=== PATIENT | male | born 1995 | race Caucasian/White ===

== ENCOUNTER 2019-01-06 13:04 | Emergency (ER) | payer MEDICAID ==
[~2019-01-06] VITALS: Ht 160 cm; Wt 72.4 kg
[2019-01-06 13:08] VITALS: BP 150/68; PULSE 92; RESP 18; Ht 160 cm; Wt 72.4 kg
[2019-01-06] MEDS ORDERED: AZITHROMYCIN 500 MG TAB PO ONE (14:30)
[2019-01-06] MEDS ORDERED: CEFTRIAXONE 250 MG INJ IM ONE (14:30)
[2019-01-06] MEDS ORDERED: LIDOCAINE 1% (MDV) 20 ML INJ SC ONE (14:30)
[2019-01-06] MEDS ORDERED: ACET325T33 PO (14:41)
--- NOTE | 2019-01-06 21:50 | ERD ---
ER Documentation Chief Complaint Chief Complaint right side testicular pain x2 wks, painful urination HPI 23 year old male presenting with right testicular pain x 2 weeks. Patient states he has had this pain in the past and it was associated with an STD that he had. Patient admits to risky sexual behaviors and states that he just got in town from [place]. Patient states he has dysuria and pain when he touches his testicle. Patient states the pain has not improved and he has not taken anything for it. Patient states in the past he had a mass on his testicle and was not sure what it was from and does not remember what he was diagnosed with. Patient denies any allergies to medications. ROS All systems reviewed and are negative except as per history of present illness. Medications Home Meds Active Scripts Acetaminophen* (Tylenol*) 325 Mg Tablet, 2 TAB PO Q6 PRN for PAIN AND OR ELEVATED TEMP, #20 TAB Prov:GEETA GUO PA-C 01/06/19 Allergies Allergies: Coded Allergies: No Known Allergy (Unverified , 01/06/19) PMhx/Soc Medical and Surgical Hx: pt denies Medical Hx, pt denies Surgical Hx Hx Alcohol Use: No Hx Substance Use: No Hx Tobacco Use: No Smoking Status: Never smoker FmHx Family History: No diabetes, No coronary disease, No other Physical Exam Vitals Vital Signs Date Temp Pulse Resp B/P (MAP) Pulse Ox O2 O2 Flow FiO2 Time Delivery Rate 01/06/19 98.1 92 18 150/68 98 13:08 (95) Physical Exam Const: No acute distress Resp: Clear to auscultation bilaterally Cardio: Regular rate and rhythm, no murmurs Abd: Soft, non tender, non distended. Normal bowel sounds Skin: No petechiae or rashes Back: No midline or flank tenderness : Patient has mild pain on palpation to right testicle, no signs of lesions or discharge, patient is able to retract his foreskin without difficulty. Results 24 hrs Laboratory Tests Test 01/06/19 13:49 Urine Color ERIN Urine Clarity SLIGHTLY CLOUDY Urine pH 6.0 Urine Specific [place] 1.031 Urine Ketones NEGATIVE mg/dL Urine Nitrite NEGATIVE mg/dL Urine Bilirubin NEGATIVE mg/dL Urine Urobilinogen 1+ mg/dL Urine Leukocyte Esterase NEGATIVE Shaheen/ul Urine Microscopic RBC 6 /HPF Urine Microscopic WBC 1 /HPF Urine Bacteria FEW /HPF Urine Mucus MODERATE /HPF Urine Hemoglobin 1+ mg/dL Urine Glucose NEGATIVE mg/dL Urine Total Protein 1+ mg/dl Current Medications Medications Dose Sig/Randell Start Time Status Last (Trade) Ordered Route PRN Stop Time Admin Dose Reason Admin Ceftriaxone 250 mg ONCE ONCE 01/06/19 DC 01/06/19 Sodium IM 14:30 01/06/19 14:29 (Rocephin) 14:31 1,000 mg ONCE ONCE 01/06/19 DC 01/06/19 Azithromycin PO 14:30 01/06/19 14:29 (Zithromax) 14:31 Lidocaine 20 ml ONCE ONCE 01/06/19 DC 01/06/19 (Xylocaine SC 14:30 01/06/19 14:29 1% (Mdv) 20 14:31 ml) Procedures/MDM ED course UA Scrotum US Ceftriaxone Azithromycin Patient tolerated medications without any side effects and all lab results were discussed with the patient Imaging PROCEDURE: US Scrotum. CLINICAL INDICATION: Pain TECHNIQUE: Multiple sonographic images of the scrotal region were obtained utilizing a linear array transducer with grayscale and color-flow and a Doppler imaging. The images were reviewed on a high-resolution PACS workstation. COMPARISON: No prior studies are available for comparison. FINDINGS: The right testicle is well visualized and has a normal echotexture. No focal areas of abnormal echogenicity are visualized. The right testicle measures 3.4 x 1.6 x 2.9 cm. There is normal color-flow. The right epididymis is visualized and unremarkable in appearance. There is normal color-flow. The left testicle is well visualized and has a normal echotexture. No focal areas abnormal echogenicity are visualized. The left testicle measures 3.4 x 1.5 x 3.2 cm. There is normal color-flow. The left epididymis is visualized and is unremarkable in appearance. There is normal color-flow. The scrotal wall is unremarkable. No swelling or edema is seen. No other incidental abnormality is identified. IMPRESSION: Unremarkable testicular ultrasound. MDM Patient 23 year old male presenting with dysuria and testicular pain. Physical examination was notable for pain to palpation on the testicles. Patient had no penile lesions, discharge, and he was able to retract the foreskin of his penis with out difficulty. The patient stated he had an STD in the past and the pain feels similar to when he had an STD. When asked if he was treated for his STD he said he thought so but couldn't recall exactly what he was given or where he was seen for the STD. Patient has stated that he was diagnosed with a mass on his testicles, but does not remember what they told him. Patient US showed no signs of mass. At this time I have low suspicion for pyelonephritis,nephrolithiasis, appendicis, epidermitis, urethritis,orchitis,balantis, prostatitis, phimosis, penile contusion, incarcerated hernia or strangulated hernia. The patients UA showed some WBC and the patient cannot recall if he was treated for and STD or not. At this time I want to treat the patient empirically for G/C. Patient was given 250 ceftriaxone and 1 gram azithromycin in the ED. I think this is the best course of treatment because the patient is unlikely to follow back up with treatment. The patient appears to not know his full medical history. The patient was advised if symptoms worsen return the ED immediately. Otherwise follow up with his PCP or community clinic within 1-2 days regarding this visit. The patient had no further questions upon discharge. Departure Diagnosis: Primary Impression: Pain in testicle Condition: Stable Patient Instructions: Cancer of the Testicles Referrals: COMMUNITY CLINICS YOU HAVE RECEIVED A MEDICAL SCREENING EXAM AND THE RESULTS INDICATE THAT YOU DO NOT HAVE A CONDITION THAT REQUIRES URGENT TREATMENT IN THE EMERGENCY DEPARTMENT. FURTHER EVALUATION AND TREATMENT OF YOUR CONDITION CAN WAIT UNTIL YOU ARE SEEN IN YOUR DOCTORS OFFICE WITHIN THE NEXT 1-2 DAYS. IT IS YOUR RESPONSIBILITY TO MAKE AN APPOINTMENT FOR FOLOW-UP CARE. IF YOU HAVE A PRIMARY DOCTOR --you should call your primary doctor and schedule an appointment IF YOU DO NOT HAVE A PRIMARY DOCTOR YOU CAN CALL OUR PHYSICIAN REFERRAL HOTLINE AT IF YOU CAN NOT AFFORD TO SEE A PHYSICIAN YOU CAN CHOSE FROM THE FOLLOWING [facility] CLINICS [facility] [address] [facility] [address] [facility]. [facility] [address] [facility] [address] [facility] [address] [facility]. [facility] [address] [facility]. [facility] YOU HAVE RECEIVED A MEDICAL SCREENING EXAM AND THE RESULTS INDICATE THAT YOU DO NOT HAVE A CONDITION THAT REQUIRES URGENT TREATMENT IN THE EMERGENCY DEPARTMENT. FURTHER EVALUATION AND TREATMENT OF YOUR CONDITION CAN WAIT UNTIL YOU ARE SEEN IN YOUR DOCTORS OFFICE WITHIN THE NEXT 1-2 DAYS. IT IS YOUR RESPONSIBILITY TO MAKE AN APPOINTMENT FOR FOLOW-UP CARE. IF YOU HAVE A PRIMARY DOCTOR --you should call your primary doctor and schedule and appointment IF YOU DO NOT HAVE A PRIMARY DOCTOR YOU CAN CALL OUR PHYSICIAN REFERRAL HOTLINE AT . IF YOU CAN NOT AFFORD TO SEE A PHYSICIAN YOU CAN CHOSE FROM THE FOLLOWING [facility] INSTITUTIONS: [facility] [address] [place] [address] [facility] [address] [place], [place] [id number] [place] [address] [address] [place] [address] Additional Instructions: FOLLOW UP WITH YOUR PRIMARY CARE PHYSICIAN TOMORROW.Return to this facility if you are not improving as expected. GEETA GUO PA-C Jan 06, 2019 21:43
== END 2019-01-06 14:49 | disposition home or self-care (01) ==
LOC: FTE 13:04
DX: N50.811 Right testicular pain (principal)
CPT/HCPCS: 76870; 81001; 87086; 96372; J0696; Z7502; Z7610

== ENCOUNTER 2019-02-05 14:18 | Emergency (ER) | payer MEDICAID ==
[~2019-02-05] VITALS: Ht 160 cm; Wt 73.3 kg
[~2019-02-05 14:18] MED LIST: ACET325T33 PO
[2019-02-05 14:32] VITALS: Ht 160 cm; Wt 73.3 kg
[2019-02-05] MEDS ORDERED: BACITRACIN 0.5%/ZINC 28.35 GM OINT TOP ONE (16:30)
[2019-02-05] MEDS ORDERED: IBUPROFEN 600 MG TAB PO ONE (16:30)
[2019-02-05] MEDS ORDERED: BACI28.34 TOP (16:43)
[2019-02-05] MEDS ORDERED: DIPHTH/TET/ACEL PERTUSS (ADULT) 0.5 ML VIAL IM* ONE (17:00)
[2019-02-05 17:07] VITALS: BP 114/71; PULSE 68; RESP 16
--- NOTE | 2019-02-05 17:09 | ERD ---
ER Documentation Chief Complaint Chief Complaint cut with knife left 3rd finger yesterday, dressing clean and dry HPI This is a pleasant 23-year-old male who is right-hand dominant presenting to the emergency department complaints of laceration to the left middle finger at the distal end which occurred yesterday around 1 PM. It happened while at work using a kitchen knife. The patient works as a cook at a local rest. Patient clean the wound well with alcohol just after it occurred. He took Advil with some relief. He reports current 10/10 pain. He denies any numbness or tingling in the distal end of the finger. He has full range of motion of all fingers of the left hand. He denies any fevers, chills, discharge, or other symptoms at this time. ROS All systems reviewed and are negative except as per history of present illness. Medications Home Meds Active Scripts Bacitracin* (Bacitracin Zinc Oint*) 28.35 Gm Oint, 1 APPLIC TOP BID, #1 TUB APPLI TO Prov:ALEJANDRO CHATTERJEE PA-C 02/05/19 Acetaminophen* (Tylenol*) 325 Mg Tablet, 2 TAB PO Q6 PRN for PAIN AND OR ELEVATED TEMP, #20 TAB Prov:GEETA GUO PA-C 01/06/19 Allergies Allergies: Coded Allergies: No Known Allergy (Unverified , 01/06/19) PMhx/Soc Medical and Surgical Hx: pt denies Medical Hx, pt denies Surgical Hx Hx Alcohol Use: No Hx Substance Use: No Hx Tobacco Use: No Smoking Status: Never smoker FmHx Family History: No diabetes Physical Exam Vitals Vital Signs Date Temp Pulse Resp B/P (MAP) Pulse Ox O2 O2 Flow FiO2 Time Delivery Rate 02/05/19 97.4 68 16 114/71 99 Room Air 17:07 (85) 02/05/19 98.2 82 18 123/65 98 14:32 (84) Physical Exam Const: No acute distress Head: Atraumatic Eyes: Normal Conjunctiva ENT: Normal External Ears, Nose and Mouth. Neck: Full range of motion. No meningismus. Resp: No respiratory distress. Skin: No petechiae or rashes Back: No midline or flank tenderness Ext: There is an approximate 1 cm superficial laceration noted to the dorsal aspect of the left middle finger Neur: Awake and alert Psych: Normal Mood and Affect Results 24 hrs Current Medications Medications Dose Sig/Randell Start Time Status Last (Trade) Ordered Route PRN Stop Time Admin Dose Reason Admin Ibuprofen 600 mg ONCE ONCE 02/05/19 DC 02/05/19 (Motrin) PO 16:30 02/05/19 16:40 16:31 Bacitracin 1 applic ONCE ONCE 02/05/19 DC 02/05/19 (Bacitracin TOP 16:30 02/05/19 16:54 0.5%/ Zinc 16:31 Oint) Diphtheria/ 0.5 ml ONCE ONCE 02/05/19 DC 02/05/19 Tetanus/Acell IM* 17:00 02/05/19 16:45 Pertussis 17:01 (Adacel) Procedures/MDM 23-year-old male presents to the emergency department for laceration of his left middle finger which is approximately 28 hours old. No indication for suture rep air at this time. Patient was given wound irrigation and middle finger splint was placed. Tetanus was updated here. No evidence of ligamental or tendon damage or foreign body. Patient is neurovascularly intact distal to the injury. Patient is advised to follow-up with hand surgeon and his primary care physician and return here immediately for any new or worsening or concerning symptoms. Patient understands and agrees with the plan. Departure Diagnosis: Primary Impression: Laceration of middle finger of left hand without complication Condition: Fair Patient Instructions: Laceration, Hand Referrals: [facility] ([facility]) Usted se meadows hecho un examen mdico de control que le indica que no est en sudha condicin que requiera tratamiento urgente en el Departamento de Emergencia. Un estudio ms profundo y el tratamiento de france condicin pueden esperar sin ningn riesgo hasta que usted sea atendida/o en el consultorio de france mdico o sudha clnica. Es responsabilidad suya arreglar sudha rosemary para el seguimiento del cinthia. MANEJO DE CONDICIONES NO URGENTES EN EL FUTURO 1) Si usted tiene un mdico de atencin primaria: Usted debera llamar a france mdico de atencin primaria antes de venir al departamento de emergencia. Despus de las horas de consultorio, france doctor o france asociado/a est disponible por telfono. El mdico o enfermero de jean-claude en el servicio telefnico puede asesorarle por kayce medio para atender el problema, o cinthia contrario se puede programar sudha rosemary. 2) Si usted no tiene un mdico de atencin primaria: Llame al mdico o clnica de referencia que aparece abajo vince las horas de consultorio para hacer sudha rosemary para que le vean. CLINICAS: [place] [address] [phone] [facility] [phone] [address] [facility] [phone] [facility] [place] [address] [phone] [facility] [place] [address] [phone] [place] [id number] [phone] Additional Instructions: Llame al doctor MAANA y stephany sudha ROSEMARY PARA DENTRO DE 1-2 CABRERA.Dgale a la secretaria que nosotros le instruimos hacer esta rosemary.Avise o llame si france condicin se empeora antes de la rosemary. Regresa aqui si peor o no mejor. ALEJANDRO CHATTERJEE PA-C Feb 05, 2019 17:08
== END 2019-02-05 17:08 | disposition home or self-care (01) ==
LOC: FTE 14:18
DX: S61.213A Laceration without foreign body of left middle finger without damage to nail, initial encounter (principal); W26.0XXA Contact with knife, initial encounter; Y92.89 Other specified places as the place of occurrence of the external cause; Z23 Encounter for immunization
CPT/HCPCS: 29130; 90715; Z7610; 90471